=== PATIENT | male | born 1950 | race Caucasian/White ===

== ENCOUNTER 2020-03-05 11:37 | Emergency (ER) | payer MEDICARE, BC ==
[2020-03-05 11:44] VITALS: RESP 18; TEMP 98
[2020-03-05] MEDS ORDERED: MECLIZINE 25 MG TAB PO STA (12:28)
[2020-03-05] MEDS ORDERED: SODIUM CHLORIDE 0.9% 500 ML 500 ML IV STA (12:28)
[2020-03-05] MEDS ORDERED: ONDANSETRON 4 MG/2 ML VIAL IVP STA (12:28)
--- NOTE | 2020-03-05 12:31 | ED ---
General Adult HPI - General Chief complaint: Dizziness Stated complaint: AMS Time Seen by Provider: 03/05/20 11:40 Source: patient, RN notes reviewed, old records reviewed Mode of arrival: wheelchair Limitations: no limitations - History of Present Illness Initial comments: This is a 69-year-old male who presents emergency Department complaining that he has been dizzy for 3 or 4 days. 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 Patient states the whole world is spinning he feels as though his trunk when he walks. Patient states she's extremely nauseated with this dizziness. Patient has noted that sitting still and not moving his head improves his symptoms. Patient states anytime he moved his head symptoms worsened. Patient states he has posterior headache. Patient denies any new numbness weakness. Patient denies any coordination problems. Patient denies any recent fever chills or cough per patient denies any exposure to cold. Patient denies chest pain palpitations difficulty breathing shortness of breath. Patient denies any vomiting or diarrhea. - Related Data Home Medications Medication Instructions Recorded Confirmed Aspirin EC [Ecotrin Low Dose] 81 mg PO HS 03/05/20 03/05/20 Kulwant/D3/Mag11/Zinc/Dental Assistant Teacher/Mu/Bor 1 tab PO DAILY 03/05/20 03/05/20 [Caltrate 600+D Plus Tablet] DULoxetine HCL [Cymbalta] 30 mg PO DAILY 03/05/20 03/05/20 Empagliflozin [Jardiance] 25 mg PO DAILY 03/05/20 03/05/20 Ergocalciferol [Vitamin D2] 50,000 unit PO SA 03/05/20 03/05/20 Ezetimibe [Zetia] 10 mg PO DAILY 03/05/20 03/05/20 Gabapentin 300 mg PO BID 03/05/20 03/05/20 Insulin Glargine,Hum.rec.anlog 6 unit SQ HS 03/05/20 03/05/20 [Lantus Solostar] Levothyroxine Sodium [Synthroid] 50 mcg PO HS 03/05/20 03/05/20 Liraglutide [Victoza 3-Anirudh] 1.8 mg SQ DAILY 03/05/20 03/05/20 Lisinopril-Hctz 20-25 mg 1 tab PO DAILY 03/05/20 03/05/20 [Zestoretic 20-25] Magnesium Oxide 400 mg PO BID 03/05/20 03/05/20 Multivit-Min/FA/Lycopen/Lutein 1 tab PO DAILY 03/05/20 03/05/20 [Centrum Silver Tablet] Pregabalin [Lyrica] 150 mg PO BID 03/05/20 03/05/20 Rosuvastatin Calcium [Crestor] 40 mg PO HS 03/05/20 03/05/20 diphenhydrAMINE [Benadryl] 50 mg PO HS 03/05/20 03/05/20 metFORMIN HCL 1,000 mg PO BID 03/05/20 03/05/20 sitaGLIPtin [Januvia] 100 mg PO DAILY 03/05/20 03/05/20 valACYclovir HCL [Valtrex] 1,000 mg PO DAILY 03/05/20 03/05/20 Previous Rx's Medication Instructions Recorded Meclizine [Antivert] 25 mg PO TID #20 tab 03/05/20 Allergies Allergy/AdvReac Type Severity Reaction Status Date / Time naproxen [From Aleve] AdvReac Nausea & Verified 03/05/20 13:25 Vomiting & Diarrhea Review of Systems ROS Statement: Those systems with pertinent positive or pertinent negative responses have been documented in the HPI. ROS Other: All systems not noted in ROS Statement are negative. Past Medical History Past Medical History: Diabetes Mellitus, Hyperlipidemia, Hypertension History of Any Multi-Drug Resistant Organisms: None Reported Past Surgical History: Joint Replacement Additional Past Surgical History / Comment(s): rt shoulder,lt carpal tunnel,lt knee Past Psychological History: No Psychological Hx Reported Smoking Status: Former smoker Past Alcohol Use History: None Reported Past Drug Use History: None Reported General Exam - General Exam Comments Initial Comments: GENERAL: Patient is well-developed and well-nourished. Patient is nontoxic and well- hydrated and is in mild distress. ENT: Neck is soft and supple. No significant lymphadenopathy is noted. Oropharynx is clear. Moist mucous membranes. Neck has full range of motion without eliciting any pain. EYES: The sclera were anicteric and conjunctiva were pink and moist. Extraocular movements were intact and pupils were equal round and reactive to light. Eyelids were unremarkable. PULMONARY: Unlabored respirations. Good breath sounds bilaterally. No audible rales rhonchi or wheezing was noted. CARDIOVASCULAR: There is a regular rate and rhythm without any murmurs gallops or rubs. ABDOMEN: Soft and nontender with normal bowel sounds. SKIN: Skin is clear with no lesions or rashes and otherwise unremarkable. NEUROLOGIC: Patient is alert and oriented x3. Cranial nerves II through XII are grossly intact. Motor and sensory are also intact. Normal speech, volume and content. Symmetrical smile. Cerebellar testing finger to nose is normal. MUSCULOSKELETAL: Normal extremities with adequate strength and full range of motion. LYMPHATICS: No significant lymphadenopathy is noted PSYCHIATRIC: Normal psychiatric evaluation. Limitations: no limitations Course Vital Signs 03/05/20 03/05/20 11:40 12:58 Temperature 98.0 F Pulse Rate 72 56 L Respiratory 18 18 Rate Blood Pressure 154/81 135/82 O2 Sat by Pulse 96 96 Oximetry Medical Decision Making - Medical Decision Making EKG shows normal sinus rhythm at 62 bpm MT interval 182 QRS is 98 QT interval 414 QTC is 420. Patient's EKG shows no ST segment elevation or depression. Chest x-ray shows no acute abnormality. CT of the brain shows no acute abnormality. Patient received Antivert in the emergency department. Patient also received Zofran emergency department. - Lab Data Result diagrams: 03/05/20 12:50 03/05/20 12:50 Lab Results 03/05/20 03/05/20 03/05/20 Range/Units 12:50 12:50 12:50 WBC 10.0 (3.8-10.6) k/uL RBC 5.36 (4.30-5.90) m/uL Hgb 17.0 (13.0-17.5) gm/dL Hct 50.2 (39.0-53.0) % MCV 93.7 (80.0-100.0) fL MCH 31.6 (25.0-35.0) pg MCHC 33.8 (31.0-37.0) g/dL RDW 13.8 (11.5-15.5) % Plt Count 254 (150-450) k/uL MPV 7.3 Neutrophils % 64 % Lymphocytes % 27 % Monocytes % 6 % Eosinophils % 1 % Basophils % 0 % Neutrophils # 6.4 (1.3-7.7) k/uL Lymphocytes # 2.7 (1.0-4.8) k/uL Monocytes # 0.6 (0-1.0) k/uL Eosinophils # 0.1 (0-0.7) k/uL Basophils # 0.0 (0-0.2) k/uL PT 10.4 (9.0-12.0) sec INR 1.0 (<1.2) APTT 22.9 (22.0-30.0) sec Sodium 139 (137-145) mmol/L Potassium 4.7 (3.5-5.1) mmol/L Chloride 108 H (98-107) mmol/L Carbon Dioxide 21 L (22-30) mmol/L Anion Gap 10 mmol/L BUN 17 (9-20) mg/dL Creatinine 0.63 L (0.66-1.25) mg/dL Est GFR (CKD-EPI)AfAm >90 (>60 ml/min/1.73 sqM) Est GFR (CKD-EPI)NonAf >90 (>60 ml/min/1.73 sqM) Glucose 164 H (74-99) mg/dL Calcium 10.0 (8.4-10.2) mg/dL Magnesium 2.1 (1.6-2.3) mg/dL Total Bilirubin 0.6 (0.2-1.3) mg/dL AST 53 (17-59) U/L ALT 42 (4-49) U/L Alkaline Phosphatase 47 (38-126) U/L Troponin I (0.000-0.034) ng/mL Total Protein 8.5 H (6.3-8.2) g/dL Albumin 4.9 (3.5-5.0) g/dL 03/05/20 Range/Units 12:50 WBC (3.8-10.6) k/uL RBC (4.30-5.90) m/uL Hgb (13.0-17.5) gm/dL Hct (39.0-53.0) % MCV (80.0-100.0) fL MCH (25.0-35.0) pg MCHC (31.0-37.0) g/dL RDW (11.5-15.5) % Plt Count (150-450) k/uL MPV Neutrophils % % Lymphocytes % % Monocytes % % Eosinophils % % Basophils % % Neutrophils # (1.3-7.7) k/uL Lymphocytes # (1.0-4.8) k/uL Monocytes # (0-1.0) k/uL Eosinophils # (0-0.7) k/uL Basophils # (0-0.2) k/uL PT (9.0-12.0) sec INR (<1.2) APTT (22.0-30.0) sec Sodium (137-145) mmol/L Potassium (3.5-5.1) mmol/L Chloride (98-107) mmol/L Carbon Dioxide (22-30) mmol/L Anion Gap mmol/L BUN (9-20) mg/dL Creatinine (0.66-1.25) mg/dL Est GFR (CKD-EPI)AfAm (>60 ml/min/1.73 sqM) Est GFR (CKD-EPI)NonAf (>60 ml/min/1.73 sqM) Glucose (74-99) mg/dL Calcium (8.4-10.2) mg/dL Magnesium (1.6-2.3) mg/dL Total Bilirubin (0.2-1.3) mg/dL AST (17-59) U/L ALT (4-49) U/L Alkaline Phosphatase (38-126) U/L Troponin I <0.012 (0.000-0.034) ng/mL Total Protein (6.3-8.2) g/dL Albumin (3.5-5.0) g/dL Disposition Clinical Impression: Vertigo Disposition: HOME SELF-CARE Condition: Good Instructions (If sedation given, give patient instructions): Vertigo (ED) Prescriptions: Meclizine [Antivert] 25 mg PO TID #20 tab Is patient prescribed a controlled substance at d/c from ED?: No Referrals: Nonstaff,Physician [Primary Care Provider] - 1-2 days Time of Disposition: 14:22
[2020-03-05 13:09] LABS: ALT 42 U/L (4-49); African American GFR (CKD) >90 (>60 ml/min/1.73 sqM); Albumin 4.9 g/dL (3.5-5.0); Anion Gap 10 mmol/L; Blood Urea Nitrogen 17 mg/dL (9-20); Carbon Dioxide 21 mmol/L (22-30); Chloride 108 mmol/L (98-107); Glucose 164 mg/dL (74-99); Non-African American GFR(CKD) >90 (>60 ml/min/1.73 sqM); Sodium 139 mmol/L (137-145); Total Bilirubin 0.6 mg/dL (0.2-1.3); Total Protein 8.5 g/dL (6.3-8.2)
[2020-03-05 13:15] LABS: Basophils % (A) 0 %; Eosinophils # (A) 0.1 k/uL (0-0.7); Eosinophils % (A) 1 %; HCT 50.2 % (39.0-53.0); Lymphocytes # (A) 2.7 k/uL (1.0-4.8); Lymphocytes % (A) 27 %; MCH 31.6 pg (25.0-35.0); MCHC 33.8 g/dL (31.0-37.0); MCV 93.7 fL (80.0-100.0); Mean Platelet Volume 7.3; Monocytes # (A) 0.6 k/uL (0-1.0); Monocytes % (A) 6 %; Neutrophils # (A) 6.4 k/uL (1.3-7.7); Neutrophils % (A) 64 %; Platelet Count 254 k/uL (150-450); RBC 5.36 m/uL (4.30-5.90); RDW 13.8 % (11.5-15.5)
[2020-03-05 13:16] LABS: Partial Thromboplastin Time 22.9 sec (22.0-30.0); Prothrombin Time 10.4 sec (9.0-12.0)
[2020-03-05 13:26] LABS: AST 53 U/L (17-59); Alkaline Phosphatase 47 U/L (38-126); Magnesium 2.1 mg/dL (1.6-2.3); Potassium 4.7 mmol/L (3.5-5.1)
--- NOTE | 2020-03-05 14:01 | XR ---
EXAMINATION TYPE: XR chest 2V DATE OF EXAM: 03/05/2020 COMPARISON: None INDICATION: Chest pain, feeling dizzy TECHNIQUE: Frontal view of the chest is obtained. Lateral view is included. FINDINGS: The heart size is normal. The pulmonary vasculature is normal. The lungs are clear. IMPRESSION: 1. No acute pulmonary process.
--- NOTE | 2020-03-05 14:16 | CT ---
EXAMINATION TYPE: CT brain wo con DATE OF EXAM: 03/05/2020 COMPARISON: None INDICATION: Headache and dizziness DLP: 1127.4 mGycm, Automated exposure control for dose reduction was used. CONTRAST: None CT of the brain is performed utilizing 3 mm thick sections through the posterior fossa and 3 mm thick sections through the remaining calvarium. Study is performed within 24 hours of arrival to the hosp [facility]. No abnormal hyperdensity is present to suggest an acute intracranial hemorrhage. No mass lesion is evident. No acute infarcts are evident. Ventricles and sulci are appropriate for the patient age. Paranasal sinuses and mastoid air cells within the efdil-pd-gbil are clear. IMPRESSIONS: 1. No acute intracranial process.
[2020-03-05 15:34] VITALS: BP 121/88; PULSE 67
== END 2020-03-05 15:24 | disposition home or self-care (01) ==
LOC: EC 11:37
DX: R42 Dizziness and giddiness (principal); R11.0 Nausea; R51.9 Headache, unspecified; E11.9 Type 2 diabetes mellitus without complications; E78.5 Hyperlipidemia, unspecified; I10 Essential (primary) hypertension; Z79.84 Long term (current) use of oral hypoglycemic drugs; Z79.82 Long term (current) use of aspirin; Z79.899 Other long term (current) drug therapy; Z88.8 Allergy status to other drugs, medicaments and biological substances; Z87.891 Personal history of nicotine dependence; Z96.611 Presence of right artificial shoulder joint
CPT/HCPCS: 36415; 93005; 80053; 83735; 84484; 85025; 85610; 85730; 71046; 70450; 99285; 96374; 96361 ×3; J2405

== ENCOUNTER → 2021-11-24 | Outpatient (CLI) | payer MEDICARE, BC ==
--- NOTE | 2021-11-24 14:23 | P.SLEEP ---
History of Present Illness DATE: 11/24/2021 CONSULTATION/NEW PATIENT EVALUATION HISTORY OF PRESENT ILLNESS/SLEEP-WAKE EVALUATION: 71 year old gentleman had b een evaluated in the sleep center for obstructive sleep apnea hypopnea syndrome. Patient has history of obstructive sleep apnea diagnosed in 2013 in [place]. Since that time he is using his CPAP equipment every night. Recently his CPAP unit was broken. I checked CPAP unit, it doesn't work at all. SLEEP SCHEDULE: Usually sleep schedule from 10 PM until 7 AM basically 7 days a week. FALLING ASLEEP: Sometimes patient has problem with falling asleep. DURING SLEEP: Patient has loud snoring, episodes of sleep apnea, multiple awakenings from sleep with nocturia, grinding teeth, dry mouth. No history of hypnogogical hallucinations, sleep paralysis, or cataplexy. DURING THE DAY/WAKE STATE: In the morning patient wake up tired, falling asleep during the day.. [place] sleepiness scale is increased to 12. Patient take nap at 1 PM. PAST MEDICAL HISTORY: Hypertension, diabetes mellitus, hypothyroidism, left wrist and knee arthritis. PAST SURGICAL HISTORY: Right shoulder replacement, surgery for carpal tunnel syndrome on the left. MEDICATIONS: Ezetimibe 10 mg once a day, metformin 500 mg 4 tablets a day, Jardiance 25 mg, Synthroid 50 g once a day, rosuvastatin 40 mg once a day, cyclobenzaprine 5 mg as needed, meclizine 25 mg as needed. SOCIAL HISTORY: History of smoking for about 60 packyears quit, alcohol consumption occasional. FAMILY HISTORY: Hypertension, heart problems. REVIEW OF SYSTEMS: Loud snoring, multiple awakenings from sleep. No fevers. No double vision. No recent chest pain. No shortness of breath. No abdominal pain. No bleeding episodes. No blood in urine. No seizure episodes. PHYSICAL EXAMINATION: GENERAL: A pleasant patient without any distress. VITAL SIGNS: BP 145/85, HR 73, RR 16, weight 251.8 pounds, height 5 foot 8-1/2 inches, body mass index 37.6. HEENT: PERRLA, EOMI. Evaluation of oropharynx showed tongue protrudes midline, low position of soft palate Mallampati 4. NECK: Supple. No JVD. Thyroid is not palpable. 18 inches in circumference. LUNGS: Clear to percussion and to auscultation. Good air exchange. No wheezing or rhonchi. HEART: S1, S2 regular. No murmurs, gallops or rubs. ABDOMEN: Soft and nontender. Bowel sounds are present. No organomegaly appreciated. EXTREMITIES: No clubbing or cyanosis. LUNCHROOM FOOD SERVICE SUPERVISOR: Awake, alert, and oriented x3. Cranial nerves 2 to 7 intact. There is no fasciculation or atrophy noted. No focal deficits observed. ASSESSMENT: 1. Obstructive sleep apnea-hypopnea syndrome for about 8 years diagnosed with another institution. CPAP unit is old, broken. Extremely low position of soft palate, wide neck, multiple awakenings from sleep. Obstructive sleep apnea hypopnea syndrome. 2. Obesity body mass index 37.6. 3 history of hypertension. 4. Diabetes mellitus. 5 hypothyroidism. 6. Carpal tunnel syndrome, status post surgical treatment on the left side. 7. Status post right shoulder replacement. 8. Knee arthritis. PLAN: 1. Prescription was written for replacement of CPAP unit with all necessary supplies including mask, tube, filters. 2. CPAP/BiPAP titration for evaluation of effective pressure for correction of respiratory abnormalities of the present time, patient lost 30 pounds since the previous sleep study in another institution 3. Preferable position during sleep on the side. 4. No driving if patient feels any sleepiness. Patient is aware of civil and criminal liability for unsafe driving. 5. Sleep hygiene with regular sleep time for at least 7.5-8 hours. 6. Losing weight. 7. Follow up visit in 30-60 days after patient will start using new CPAP equipment to check clinical response on treatment, compliance with treatment and make any necessary adjustments related to mask fitting compression humidification Thank you very much for referring this patient for consultation. Sincerely, Mitchell Simons MD, PhD, FAASM. Diplomat of [place] [employer], Sleep Medicine Board by [place] [employer] [employer] [facility] [place] Dictation have been done with the usage of [employer] voice recognition system. Past Medical History Past Medical History: Diabetes Mellitus, Hyperlipidemia, Hypertension History of Any Multi-Drug Resistant Organisms: None Reported Past Surgical History: Joint Replacement Additional Past Surgical History / Comment(s): rt shoulder,lt carpal tunnel,lt knee Past Psychological History: No Psychological Hx Reported Smoking Status: Former smoker Past Alcohol Use History: None Reported Past Drug Use History: None Reported Medications and Allergies Home Medications Medication Instructions Recorded Confirmed Type Aspirin EC [Ecotrin Low Dose] 81 mg PO HS 03/05/20 03/05/20 History Kulwant/D3/Mag11/Zinc/Curriculum Manager/Mu/Bor 1 tab PO DAILY 03/05/20 03/05/20 History [Caltrate 600+D Plus Tablet] DULoxetine HCL [Cymbalta] 30 mg PO DAILY 03/05/20 03/05/20 History Empagliflozin [Jardiance] 25 mg PO DAILY 03/05/20 03/05/20 History Ergocalciferol [Vitamin D2] 50,000 unit PO SA 03/05/20 03/05/20 History Ezetimibe [Zetia] 10 mg PO DAILY 03/05/20 03/05/20 History Gabapentin 300 mg PO BID 03/05/20 03/05/20 History Insulin Glargine,Hum.rec.anlog 6 unit SQ HS 03/05/20 03/05/20 History [Lantus Solostar] Levothyroxine Sodium [Synthroid] 50 mcg PO HS 03/05/20 03/05/20 History Liraglutide [Victoza 3-Anirudh] 1.8 mg SQ DAILY 03/05/20 03/05/20 History Lisinopril-Hctz 20-25 mg 1 tab PO DAILY 03/05/20 03/05/20 History [Zestoretic 20-25] Magnesium Oxide 400 mg PO BID 03/05/20 03/05/20 History Meclizine [Antivert] 25 mg PO TID #20 tab 03/05/20 Rx Multivit-Min/FA/Lycopen/Lutein 1 tab PO DAILY 03/05/20 03/05/20 History [Centrum Silver Tablet] Pregabalin [Lyrica] 150 mg PO BID 03/05/20 03/05/20 History Rosuvastatin Calcium [Crestor] 40 mg PO HS 03/05/20 03/05/20 History diphenhydrAMINE [Benadryl] 50 mg PO HS 03/05/20 03/05/20 History metFORMIN HCL [Glucophage] 1,000 mg PO BID 03/05/20 03/05/20 History sitaGLIPtin [Januvia] 100 mg PO DAILY 03/05/20 03/05/20 History valACYclovir HCL [Valtrex] 1,000 mg PO DAILY 03/05/20 03/05/20 History Allergies Allergy/AdvReac Type Severity Reaction Status Date / Time naproxen [From Aleve] AdvReac Nausea & Verified 03/05/20 13:25 Vomiting & Diarrhea Sleep Note - Sleep Note Sleep Note: Temperature: Pulse Rate: Respiratory Rate: Blood Pressure: SpO2: Height: Weight: BMI: Neck Circumference:
== END ==
LOC: SLEEP 13:29
PROVIDERS: ATTEND Internal Medicine
DX: G47.33 Obstructive sleep apnea (adult) (pediatric) (principal); I10 Essential (primary) hypertension; E11.9 Type 2 diabetes mellitus without complications; E03.9 Hypothyroidism, unspecified; G56.02 Carpal tunnel syndrome, left upper limb; M19.032 Primary osteoarthritis, left wrist; M17.12 Unilateral primary osteoarthritis, left knee; Z96.611 Presence of right artificial shoulder joint; Z98.890 Other specified postprocedural states; Z79.84 Long term (current) use of oral hypoglycemic drugs; Z79.890 Hormone replacement therapy; Z79.899 Other long term (current) drug therapy; Z87.891 Personal history of nicotine dependence; Z88.6 Allergy status to analgesic agent
CPT/HCPCS: 99211

== ENCOUNTER → 2022-03-01 | Outpatient (CLI) | payer MEDICARE, BC ==
--- NOTE | 2022-03-01 13:20 | MR ---
EXAMINATION TYPE: MR sacroiliac joints wo/w con DATE OF EXAM: 03/01/2022 COMPARISON: None. HISTORY: Sacroiliitis. Right-sided pelvic and hip pain. CONTRAST: Standard multiplanar, multisequence MRI departmental protocol images were obtained without contrast a nd with 11 mL intravenous Gadavist gadolinium contrast. FINDINGS: Focal heterogeneous diminished T1 signal and increased T2 signal with some heterogeneous po stcontrast enhancement involving the anterior portion of the right sacrum abutting the sacroiliac kai nt coronal image 9 for reference corresponding to axial image 25 roughly 2.5 cm area. Adjacent sacroi liac joints appear symmetric throughout the left side. No additional areas of suspicious enhancement or edema seen bilaterally. There is symmetric moderate narrowing thought present bilaterally. There i s mild to moderate spurring left greater than right noted bilaterally greatest along superior aspects . No concerning pelvic fluid collection. No abnormal bowel dilatation. Normal size prostate is seen. Fo rodney slight grade 1 retrolisthesis L5 on S1 with moderate disc space narrowing greatest posteriorly is noted. 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
== END | disposition home or self-care (01) ==
LOC: RADMRIMAIN 11:07
PROVIDERS: ATTEND Internal Medicine Rheumatology
DX: M46.1 Sacroiliitis, not elsewhere classified (principal)
CPT/HCPCS: 72197; A9585